=== PATIENT | female | born 1980 | race Caucasian/White ===

== ENCOUNTER → 2020-02-07 | Outpatient (CLI) | payer OTHER ==
[~2020-02-07] VITALS: Ht 162.6 cm; Wt 69.8 kg
[~2020-02-07] MED LIST: ALDACTONE 25MG25 M1 PO; [UNRECOGNIZED DRUG - OTHER] PO; [UNRECOGNIZED DRUG - OTHER] PO; [UNRECOGNIZED DRUG - OTHER] PO; [UNRECOGNIZED DRUG - OTHER] PO
[2020-02-07 13:39] VITALS: BP 135/90; PULSE 79
[2020-02-07 14:45] VITALS: BP 136/91; PULSE 69
== END ==
LOC: COL.RAD 13:28
DX: E04.1 Nontoxic single thyroid nodule (principal)

== ENCOUNTER → 2020-05-03 | Outpatient (CLI) | payer OTHER | LOC: COL.RAD 07:43 | DX: M25.551 Pain in right hip (principal) ==